=== PATIENT | female | born 1980 | race Caucasian/White ===

== ENCOUNTER 2021-08-10 19:47 | Emergency (ER) | payer SELFPAY ==
[~2021-08-10] VITALS: Ht 160 cm; Wt 72.6 kg
--- NOTE | 2021-08-10 19:47 | NUR ---
IVETH WHITE, PRE-BOOK. TAKEN TO CHAIR
[2021-08-10 19:49] VITALS: BP 154/73
[2021-08-10 20:16] VITALS: BP 154/73
--- NOTE | 2021-08-10 20:23 | NUR ---
PATIENT BIB [employer] [employer]. PATIENT EXAMINED BY DR. LIRIANO. PATIENT MEDICALLY CLEARED AND RELEASED IN CUSTODY IN STABLE CONDITION. ORIGINAL PRE-BOOK FORM GIVEN TO OFFICER VANDANA.
== END 2021-08-10 20:23 ==
LOC: MED 19:47
DX: S00.31XA Abrasion of nose, initial encounter (principal); Z02.89 Encounter for other administrative examinations; X58.XXXA Exposure to other specified factors, initial encounter; Y93.89 Activity, other specified; Y92.89 Other specified places as the place of occurrence of the external cause; Y99.8 Other external cause status
CPT/HCPCS: 99283